=== PATIENT | male | born 1975 | race Two or more races ===

== ENCOUNTER → 2025-03-30 | Outpatient (CLI) | payer OTHER, SELFPAY ==
--- NOTE | 2025-03-30 15:34 | XR_ITS ---
Examination: Ultrasound soft tissue forehead TECHNIQUE: Grayscale sonographic images soft tissue left forehead Exam date and time: March 30, 2025 1559 hours INDICATIONS: Palpable lump left forehead noticed beginning 2 years ago FINDINGS: Solid mass isoechoic at the area concern in the soft tissue left forehead 18 x 6 x 16 mm IMPRESSION: Soft tissue mass probable lipoma at the area concern soft tissue left forehead 18 x 6 x 16 mm Suggest 3 month follow-up ultrasound soft tissue
== END | disposition home or self-care (01) ==
PROVIDERS: PCP Registered Nurse; Referring Provider Registered Nurse; Visit Provider Registered Nurse
DX: R22.1 Localized swelling, mass and lump, neck (principal)
CPT/HCPCS: 76536